=== PATIENT | male | born 1965 | race Caucasian/White ===

== ENCOUNTER 2020-08-13 20:49 | Emergency (ER) | payer SELFPAY ==
--- NOTE | ~2020-08-13 | XR_ITS ---
EXAMINATION: XR FINGER, LEFT CLINICAL INFORMATION: Third and fourth finger laceration COMPARISON: None TECHNIQUE: Three views of the left index finger. FINDINGS: There is a fracture of the distal tuft of the second distal phalanx. The margins appear somewhat well corticated. No fracture of the remaining fingers. Normal mineralization and alignment. XR/XR finger LT min 2V IMPRESSION: Fracture of the distal tuft of the second distal phalanx. The margins of the somewhat well corticated suggesting a subacute or remote fracture. Recommend clinical correlation.
[2020-08-13 21:43] VITALS: BP 112/75; PULSE 70; RESP 16; TEMP 36.8; O2SAT 98; BMI 20.9
--- NOTE | 2020-08-13 22:36 | ED_ITS ---
HPI - Wound/Laceration General Chief Complaint: Skin/Abscess/Foreign Body Stated Complaint: Finger lac Source: patient Mode of arrival: ambulatory History of Present Illness HPI narrative: 54-year-old male with arthritis, diabetes, and neuropathy presents with crush injury and avulsion laceration to the right index finger. Stated that he got his finger crushed between his wheelchair. He stated that he did try to clean out the wound however could not get the bleeding to stop. He is also concerned about infection because of his diabetes and his poor healing. He does not describe any other symptoms. Onset (ago): hour(s) (Within the hour of arrival) Place: home Patient tetanus UTD: No Context: accidental Associated symptoms: pain Related Data Previous Rx's Medication Instructions Recorded amoxicillin-pot clavulanate 1 tab PO Q12H 5 Days #10 tab 08/13/20 [Augmentin] doxycycline monohydrate 100 mg PO BID 7 Days #14 cap 08/13/20 Allergies Allergy/AdvReac Type Severity Reaction Status Date / Time ciprofloxacin Allergy Unknown Verified 08/13/20 21:50 Review of Systems Review of Systems: Constitutional: No Fever, No Chills ENT/Mouth: No Ear Pain, No Hoarseness, No sore throat Eyes: No Eye Pain, No Swelling, No Redness, No Foreign Body Cardiovascular: No Chest Pain, No SOB Respiratory: No Cough, No Dyspnea Gastrointestinal: No Nausea, No Vomiting, No Diarrhea, No abdominal Pain Genitourinary: No Dysuria, No Hematuria Musculoskeletal: positive right index finger pain, No Myalgias, No Joint Swelling Skin: Positive right finger avulsion, No Skin lacerations, No rash Neuro: No Weakness, No Numbness, No Paresthesias, No Loss of Consciousness, No Dizziness, No Headache Psych: No Anxiety/Panic, No Depression Heme/Lymph: no easy bruising, no Lymphadenopathy Endocrine: No Polyuria, No Polydipsia Yes all other systems are reviewed and are negative PMFSH Past Medical History Attestation statement: The following information was validated with the patient. Source: old records reviewed Medical History Arthritis Diabetes Neuropathy Social History Social History Advance Directives: No Advance Directives Information Provided: Yes Physical Exam Vital Signs: Vital Signs: Last Vital Signs Temp 98.2 F 08/13/20 21:43 Pulse 70 08/13/20 21:43 Resp 16 08/13/20 21:43 BP 112/75 08/13/20 21:43 Pulse Ox 98 08/13/20 21:43 Body Mass Index 20.9 Appearance: Alert. Oriented X3. No acute distress. Eyes: Pupils equal, round and reactive to light. ENT: Pharynx normal. Neck: Normal inspection. Neck supple. CVS: Normal heart rate and rhythm. Pulses normal. Respiratory: No respiratory distress. Breath sounds normal. Abdomen: Soft and nontender. Skin: Avulsion to the right index finger with bruising and tenderness, full range of motion Skin warm and dry. Normal skin color. Normal skin turgor. Extremities: Full range of motion to all extremities. Ambulates with cane. Neuro: No motor deficit. No sensory deficit. Course Course Course Narrative: 54-year-old male presents with crush injury to the right index finger. He got his finger crushed in his wheelchair. There is an avulsion to the lateral aspect of the right index tip. Will order x-rays. Patient does not want sutures, declines Tdap vaccine and states that he has too many side effects from any of the medications, he is skeptical about the addition of diphtheria and pertussis. Wound cleaned with copious amounts of sterile saline, proviodine solution utilized for cleansing, Steri-Strips applied to keep avulsion flap in place. Patient was advised to follow up with primary care physician for evaluation for wound check as he mentioned multiple times that he heals poorly. Patient also stated that he did not want to keep the band age on for any length of time because he does not like bandages as they may cause skin irritation. Patient was advised that if he removed the Steri-Strips before they fell off have adverse effects. Patient very argumentative about all suggestions for wound care. Patient would be discharged with Augmentin and doxycycline p.o.. Patient verbalized understanding of and agrees plan of care discharge home. Procedures Laceration Laceration 1: Site: hand Side (If applicable): right Size (cm): 4 Description: flap Depth: simple, single layer Pre-repair: wound explored, irrigated extensively and deep structures intact Skin layer closed with: other (Steri-Strips) MDM - Wound/Laceration Differential Diagnosis Differential diagnosis: Likely avulsion of skin Medical Records Attestation: I reviewed the patient's medical records. Lab Data Attestation: I reviewed the patient's lab results. Imaging Data Finger x-ray: My impression: Please note, the x-ray instructions say 3rd and 4th finger laceration, this is incorrect this is an index finger crush injury Radiologist's impression: EXAMINATION: XR FINGER, LEFT CLINICAL INFORMATION: Third and fourth finger laceration COMPARISON: None TECHNIQUE: Three views of the left index finger. FINDINGS: There is a fracture of the distal tuft of the second distal phalanx. The margins appear somewhat well corticated. No fracture of the remaining fingers. Normal mineralization and alignment. XR/XR finger LT min 2V IMPRESSION: Fracture of the distal tuft of the second distal phalanx. The margins of the somewhat well corticated suggesting a subacute or remote fracture. Recommend clinical correlation. Discharge Plan Discharge Clinical Impression: Avulsion of skin, Finger fracture Patient Disposition: Home, Self-Care Instructions: Finger Fracture (ED), Skin Avulsion (ED) Additional Instructions: You were evaluated for a crush injury to the right index finger. There is a small fracture at the tip of your finger. We applied Steri-Strips the avulsion of the skin in place. Please keep the Steri-Strips in place as long as possible. Use finger splint as needed for comfort. Take doxycycline and Augmentin as directed. These medications are antibiotics. These medications are to prevent infection. You declined a Tdap vaccine today. Thank you for choosing this emergency department for evaluation. Please foll ow-up with primary care physician as needed. Return to the emergency department for any new, concerning, or worsening symptoms. Prescriptions: New amoxicillin-pot clavulanate [Augmentin] 875-125 mg tablet 1 tab PO Q12H 5 Days Qty: 10 RF: 0 doxycycline monohydrate 100 mg capsule 100 mg PO BID 7 Days Qty: 14 RF: 0 Interventions: ED Discharge Assessment Last Done: 08/14/20 00:29 Discharge Date/Time: 08/14/20 00:06
[2020-08-14] MEDS: Amoxicillin/Potassium Clav 875 MG TABLET PO (00:07)
== END 2020-08-14 00:06 | disposition home or self-care (01) ==
PROVIDERS: Emergency Provider Student in an Organized Health Care Education/Training Program
DX: S62.661B Nondisplaced fracture of distal phalanx of left index finger, initial encounter for open fracture (principal); W23.1XXA Caught, crushed, jammed, or pinched between stationary objects, initial encounter; E11.9 Type 2 diabetes mellitus without complications; Y93.9 Activity, unspecified; Y92.9 Unspecified place or not applicable; Y99.9 Unspecified external cause status
CPT/HCPCS: 73140; 90471; 96372; 99283; 99284